=== PATIENT | male | born 1935 | race Caucasian/White ===

== ENCOUNTER 2017-07-15 07:40 | Emergency (ER) | payer MEDICARE ==
[~2017-07-15] VITALS: Ht 190.5 cm; Wt 102.0 kg
[~2017-07-15 07:40] MED LIST: BYSTOLIC5 MG PO; CIPROFLOXACN500 MG PO; DILAUDID 2MG2 MG/TAB PO; FLOMAX0.4 M1 PO; LIPITOR20 MG PO; LORTAB 10-325 M1 TAB PO; TORADOL PO
[2017-07-15 08:09] LABS: URINE BILIRUBIN - DIPSTICK NEGATIVE (NEGATIVE); URINE BLOOD DIPSTICK LARGE (NEGATIVE); URINE COLOR YELLOW; URINE GLUCOSE - DIPSTICK >=1000 mg/dL (NEGATIVE); URINE KETONE NEGATIVE (NEGATIVE); URINE LEUK ESTERASE NEGATIVE (NEGATIVE); URINE NITRITE - DIPSTICK NEGATIVE (Negative); URINE PH 6.5 (4.5-8.0); URINE PROTEIN - DIPSTICK TRACE mg/dL (NEG-TRACE); URINE UROBILINOGEN - DIPSTICK 0.2 E.U./dL (0.2)
[2017-07-15 08:10] LABS: HEMATOCRIT 47.3 % (39.0-50.0); HEMOGLOBIN 15.5 g/dl (14.0-18.0); IMMATURE GRANULOCYTES 0.3 % (0.0-1.0); MEAN CELL VOLUME 94.2 fL CALC (80.0-100.0); MEAN CORPUSCULAR HGB 30.9 pG CALC (26.0-32.0); MEAN CORPUSCULAR HGB CONC 32.8 g/L CALC (32.0-36.0); NEUT# 8.99 thou/uL (1.82-7.42); RED BLOOD COUNT 5.02 mill/uL (4.70-6.10); RED CELL DISTRI WIDTH 13.2 % (11.5-15.5)
[2017-07-15] MEDS ORDERED: RAPAFLO4 MG PO (08:14)
[2017-07-15 08:17] LABS: URINE CLARITY CLEAR; URINE RBC 50-100 RBC/hpf (0-5); URINE WBC 0-2 WBC/hpf (0-5)
[2017-07-15 08:26] LABS: ALBUMIN 4.5 g/dL (3.2-5.0); ALKALINE PHOSPHATASE 98 u/l (38-126); ANION GAP 18 (6-22 (CALC)); BILIRUBIN, TOTAL 0.7 mg/dL (0.0-1.4); BUN 18 mg/dL (8-23); BUN/CREATININE RATIO 15 (12-20 (CALC)); CARBON DIOXIDE 26 mmol/l (22-30); CHLORIDE 105 mmol/l (95-108); CREATININE 1.1 mg/dL (0.7-1.3); GFR > 60 ML/MIN (>=60 (CALC)); GFR FOR AFR.AMER. > 60 ML/MIN (>=60 (CALC)); GLUCOSE 282 mg/dL (82-115); LIPASE 93 u/l (23-300); POTASSIUM 4.4 mmol/l (3.5-5.1); SGOT/AST 41 u/l (19-48); SGPT/ALT 74 u/l (11-66); SODIUM 144 mmol/l (137-146); TOTAL PROTEIN 7.5 g/dL (6.3-8.2)
[2017-07-15] MEDS ORDERED: HYDROCO/APAP1 TA9 PO (10:37)
[2017-07-15] MEDS ORDERED: TAMSULOSIN0.4 MG PO (10:37)
[2017-07-15] MEDS ORDERED: CEPHALEXIN500 M1 PO (10:37)
[2017-07-15] MEDS ORDERED: MOTRIN400 MG PO (10:37)
[2017-07-15 11:04] VITALS: BP 177/86
== END 2017-07-15 11:04 | disposition home or self-care (01) ==
LOC: ED 07:40
PROVIDERS: Family Medicine
DX: N13.2 Hydronephrosis with renal and ureteral calculous obstruction (principal)

== ENCOUNTER 2018-06-02 11:57 | Emergency (ER) | payer MEDICARE ==
[~2018-06-02] VITALS: Ht 188 cm; Wt 104.1 kg
[~2018-06-02 11:57] MED LIST changes: +CEPHALEXIN500 M1 PO; +HYDROCO/APAP1 TA9 PO; +MOTRIN400 MG PO; +RAPAFLO4 MG PO; +TAMSULOSIN0.4 MG PO
[2018-06-02] MEDS ORDERED: AMOXICILLIN500 MG PO (14:49)
[2018-06-02] MEDS ORDERED: NAPROSYN500 MG PO (14:49)
[2018-06-02 15:10] VITALS: BP 157/84
== END 2018-06-02 15:10 | disposition home or self-care (01) ==
LOC: ED 11:57
DX: I80.02 Phlebitis and thrombophlebitis of superficial vessels of left lower extremity (principal); R22.42 Localized swelling, mass and lump, left lower limb; M79.652 Pain in left thigh